=== PATIENT | male | born 1945 | race Two or more races ===

== ENCOUNTER 2020-02-10 06:28 | Inpatient (IN) | payer OTHER ==
[~2020-02-10] VITALS: Wt 6.0 kg
[2020-02-10] MEDS ORDERED: SYNTHROID112 MCG (06:37)
[2020-02-10] MEDS ORDERED: LOTREL 10-40 M1 EACH (06:37)
[2020-02-10] MEDS ORDERED: AMIODARONE HCL100 MG (06:37)
[2020-02-10] MEDS ORDERED: LIPITOR40 M1 (06:37)
[2020-02-10] MEDS ORDERED: CARDURA1 MG (06:38)
[2020-02-10] MEDS ORDERED: ELIQUIS5 MG (06:38)
[2020-02-10] MEDS ORDERED: LASIX40 MG (06:38)
[2020-02-10] MEDS ORDERED: TENORMIN25 MG (06:38)
[2020-02-12] MEDS ORDERED: PERCOCET 5-3251 EACH PO (11:48)
[2020-02-12] MEDS ORDERED: NEURONTIN300 MG PO (11:49)
[2020-02-12] MEDS ORDERED: RECTICARE30 GM TOP (11:49)
[2020-02-12] MEDS ORDERED: LOVENOX40 MG/0.4 SUBCUTANEO (11:55)
[2020-02-13] MEDS ORDERED: TAMSULOSIN HCL0.4 MG PO (10:59)
[2020-02-13] MEDS ORDERED: CODE1TAB37 PO (10:59)
== END 2020-02-13 11:46 | disposition home or self-care (01) | DRG 348 ==
LOC: ER 06:28 → SURH 09:43
PROVIDERS: ADMIT Surgery
PROC: 0DBQ7ZZ Excision of Anus, Via Natural or Artificial Opening (ICD-10-PCS; principal; 2020-02-10)
PROC: 3E0T3BZ Introduction of Anesthetic Agent into Peripheral Nerves and Plexi, Percutaneous Approach (ICD-10-PCS; 2020-02-10)
DX: K60.1 Chronic anal fissure (principal); C21.1 Malignant neoplasm of anal canal; I48.91 Unspecified atrial fibrillation; I25.10 Atherosclerotic heart disease of native coronary artery without angina pectoris; I25.84 Coronary atherosclerosis due to calcified coronary lesion; N18.3 Chronic kidney disease, stage 3 (moderate); I13.10 Hypertensive heart and chronic kidney disease without heart failure, with stage 1 through stage 4 chronic kidney disease, or unspecified chronic kidney disease

== ENCOUNTER 2020-03-09 06:15 | Day surgery (SDC) | payer OTHER ==
[~2020-03-09 06:15] MED LIST: AMIODARONE HCL100 MG; CARDURA1 MG; CODE1TAB37 PO; ELIQUIS5 MG; LASIX40 MG; LIPITOR40 M1; LOTREL 10-40 M1 EACH; LOVENOX40 MG/0.4 SUBCUTANEO; NEURONTIN300 MG PO; PERCOCET 5-3251 EACH PO; RECTICARE30 GM TOP; SYNTHROID112 MCG; SYNTHROID125 MCG; TAMSULOSIN HCL0.4 MG PO; TENORMIN25 MG
[2020-03-09] MEDS ORDERED: CODE1TAB37 PO (10:41)
== END 2020-03-09 12:52 | disposition home or self-care (01) ==
LOC: CIR.AMB 06:15 → ADM 09:45 → CIR.AMB 09:45 → ADM 12:30 → CIR.AMB 12:52
DX: C21.1 Malignant neoplasm of anal canal (principal)
CPT/HCPCS: 36561; C1751

== ENCOUNTER 2020-04-19 04:57 | Inpatient (IN) | payer OTHER ==
[~2020-04-19] VITALS: Ht 185.4 cm; Wt 93.4 kg
[2020-04-29] MEDS ORDERED: ATENOLOL25 MG PO (12:44)
[2020-04-29] MEDS ORDERED: INTEGRA F CAPS1 EACH PO (12:44)
[2020-04-29] MEDS ORDERED: CHOLESTYRAMINE P4 GM PO (12:44)
[2020-04-29] MEDS ORDERED: LEVOTHYROXINE150 MCG PO (12:45)
[2020-04-29] MEDS ORDERED: DOXAZOSIN MESYLA1 MG PO (12:45)
[2020-04-29] MEDS ORDERED: PROTONIX40 MG PO (12:45)
[2020-04-29] MEDS ORDERED: INTESTINEX680 M1 PO (12:45)
[2020-04-29] MEDS ORDERED: AMIODARONE HCL100 MG MD (12:45)
[2020-04-29] MEDS ORDERED: LASIX40 MG PO (12:45)
[2020-04-29] MEDS ORDERED: Neurin-Sl Tablet Sl SL (12:45)
[2020-04-29] MEDS ORDERED: LIPITOR40 M1 PO (12:45)
[2020-04-29] MEDS ORDERED: LOPERAMIDE2 MG PO (12:45)
[2020-04-29] MEDS ORDERED: ELIQUIS5 MG PO (12:45)
== END 2020-04-29 13:37 | disposition home or self-care (01) | DRG 388 ==
LOC: ER 04:57 → SEC-K 15:49 → MEDI 15:49
PROVIDERS: ADMIT Internal Medicine Geriatric Medicine; ATTEND Internal Medicine Geriatric Medicine
PROC: BW21Y0Z Computerized Tomography (CT Scan) of Abdomen and Pelvis using Other Contrast, Unenhanced and Enhanced (ICD-10-PCS; principal; 2020-04-19)
PROC: 8E0ZXY6 Isolation (ICD-10-PCS; 2020-04-19)
PROC: 4A12X4Z Monitoring of Cardiac Electrical Activity, External Approach (ICD-10-PCS; 2020-04-21)
PROC: B54DZZZ Ultrasonography of Bilateral Lower Extremity Veins (ICD-10-PCS; 2020-04-23)
PROC: 02HV33Z Insertion of Infusion Device into Superior Vena Cava, Percutaneous Approach (ICD-10-PCS; 2020-04-26)
PROC: 3E0436Z Introduction of Nutritional Substance into Central Vein, Percutaneous Approach (ICD-10-PCS; 2020-04-26)
DX: K56.600 Partial intestinal obstruction, unspecified as to cause (principal); A41.9 Sepsis, unspecified organism; I48.20 Chronic atrial fibrillation, unspecified; K57.30 Diverticulosis of large intestine without perforation or abscess without bleeding; I10 Essential (primary) hypertension; I87.2 Venous insufficiency (chronic) (peripheral); E03.8 Other specified hypothyroidism; D72.819 Decreased white blood cell count, unspecified; Z79.01 Long term (current) use of anticoagulants; Z03.818 Encounter for observation for suspected exposure to other biological agents ruled out; Z98.61 Coronary angioplasty status

== ENCOUNTER 2020-04-30 01:02 | Emergency (ER) | payer OTHER ==
[~2020-04-30] VITALS: Ht 172.7 cm; Wt 61.7 kg
[~2020-04-30 01:02] MED LIST changes: +AMIODARONE HCL100 MG MD; +ATENOLOL25 MG PO; +CHOLESTYRAMINE P4 GM PO; +DOXAZOSIN MESYLA1 MG PO; +ELIQUIS5 MG PO; +INTEGRA F CAPS1 EACH PO; +INTESTINEX680 M1 PO; +LASIX40 MG PO; +LEVOTHYROXINE150 MCG PO; +LIPITOR40 M1 PO; +LOPERAMIDE2 MG PO; +Neurin-Sl Tablet Sl SL; +PROTONIX40 MG PO
== END 2020-04-30 14:59 | disposition home or self-care (01) ==
LOC: ER 01:02
DX: R60.0 Localized edema (principal); M79.621 Pain in right upper arm; T82.898A Other specified complication of vascular prosthetic devices, implants and grafts, initial encounter; Y84.8 Other medical procedures as the cause of abnormal reaction of the patient, or of later complication, without mention of misadventure at the time of the procedure; Y92.89 Other specified places as the place of occurrence of the external cause

== ENCOUNTER 2021-07-06 06:30 | Day surgery (SDC) | payer OTHER | END 2021-07-06 09:55 | disposition home or self-care (01) | LOC: AMB-ENDOS 06:30 | PROVIDERS: ATTEND Surgery | DX: D12.2 Benign neoplasm of ascending colon (principal); D12.4 Benign neoplasm of descending colon; K62.7 Radiation proctitis; K52.89 Other specified noninfective gastroenteritis and colitis; Z20.822 Contact with and (suspected) exposure to COVID-19 ==

== ENCOUNTER → 2021-10-20 08:00 | Outpatient (CLI) | payer OTHER | END | disposition home or self-care (01) | LOC: LAB 08:00 → ADM 08:15 → EDSTATUS 10-23 08:15 → CIR.AMB 10-23 08:15 | PROVIDERS: ATTEND Surgery | DX: K57.30 Diverticulosis of large intestine without perforation or abscess without bleeding (principal); K62.7 Radiation proctitis; D12.2 Benign neoplasm of ascending colon; D12.4 Benign neoplasm of descending colon; Z20.828 Contact with and (suspected) exposure to other viral communicable diseases; I10 Essential (primary) hypertension ==

== ENCOUNTER → 2022-10-03 09:19 | Outpatient (CLI) | payer OTHER | END | disposition home or self-care (01) | LOC: LAB 09:19 | PROVIDERS: ATTEND Surgery | DX: K57.30 Diverticulosis of large intestine without perforation or abscess without bleeding (principal); K62.7 Radiation proctitis; R59.0 Localized enlarged lymph nodes; C44.520 Squamous cell carcinoma of anal skin; Z01.811 Encounter for preprocedural respiratory examination; K61.0 Anal abscess ==

== ENCOUNTER 2022-10-09 12:15 | Inpatient (IN) | payer OTHER ==
[~2022-10-09] VITALS: Ht 182.9 cm; Wt 101.6 kg
[2022-10-09] MEDS ORDERED: LOTREL 5-20 MG1 CAP PO (13:53)
[2022-10-20] MEDS ORDERED: MORGIDOX100 MG PO (08:30)
[2022-10-20] MEDS ORDERED: ULTRAM50 MG PO (08:33)
== END 2022-10-20 11:14 | disposition home or self-care (01) | DRG 357 ==
LOC: SURH 10-15 07:00 → O/R 10-15 07:02 → SURH 10-15 07:02 → MEDJ 10-15 16:03 → SURH 10-15 16:04
PROVIDERS: ADMIT Surgery; ATTEND Surgery
PROC: 07BC4ZZ Excision of Pelvis Lymphatic, Percutaneous Endoscopic Approach (ICD-10-PCS; principal; 2022-10-16)
PROC: 0TN74ZZ Release Left Ureter, Percutaneous Endoscopic Approach (ICD-10-PCS; 2022-10-16)
PROC: 4A1635H Monitoring of Lymphatic Flow using Indocyanine Green Dye, Percutaneous Approach (ICD-10-PCS; 2022-10-16)
PROC: 0WJP8ZZ Inspection of Gastrointestinal Tract, Via Natural or Artificial Opening Endoscopic Approach (ICD-10-PCS; 2022-10-16)
PROC: 4A12X4Z Monitoring of Cardiac Electrical Activity, External Approach (ICD-10-PCS; 2022-10-16)
PROC: B54CZZZ Ultrasonography of Left Lower Extremity Veins (ICD-10-PCS; 2022-10-19)
DX: K57.30 Diverticulosis of large intestine without perforation or abscess without bleeding (principal); L03.319 Cellulitis of trunk, unspecified; C44.520 Squamous cell carcinoma of anal skin; K62.7 Radiation proctitis; R59.0 Localized enlarged lymph nodes; N13.5 Crossing vessel and stricture of ureter without hydronephrosis; Z20.822 Contact with and (suspected) exposure to COVID-19; I12.9 Hypertensive chronic kidney disease with stage 1 through stage 4 chronic kidney disease, or unspecified chronic kidney disease; N18.30 Chronic kidney disease, stage 3 unspecified; I48.91 Unspecified atrial fibrillation; E03.9 Hypothyroidism, unspecified

== ENCOUNTER 2022-10-31 13:24 | Inpatient (IN) | payer OTHER ==
[~2022-10-31] VITALS: Ht 177.8 cm; Wt 80.7 kg
[~2022-10-31 13:24] MED LIST changes: +LOTREL 5-20 MG1 CAP PO; +MORGIDOX100 MG PO; +ULTRAM50 MG PO
--- NOTE | 2022-10-31 13:35 | NUR ---
SE RECIBE PACIENTE DE AMBULANCIA ALERTA Y ORIENTADO X3 QUIEN REFIERE TUVO UN PROCEDIMIENTO CON LA CAROL YAMILA MARTINEZ EN OCT 15 Y PRESENTA DOLOR PELVICO. SE MONITOREAN LOS SV
--- NOTE | 2022-10-31 15:58 | NUR ---
SE REALIZA ADMINISTRACION DE MEDICAMENTOS A PACIENTE POR ORDEN MEDICA, SE ORIENTA A PACIENTE SOBRE USO Y EFECTOS DE LOS MEDICAMENTOS A SER ADMINISTRADOS. PACIENTE SE LE REALIZA MUESTRAS DE JACK POR ORDEN MEDICA, SE REALIZAN CULTIVOS DE JACK BAJO MEDIDAS ESTERILES, Y SE TKMA TEMPERATURA.
[2022-11-02] MEDS ORDERED: PANTOPRAZOLE SO40 MG (08:12)
[2022-11-02] MEDS ORDERED: OMEGA-3 ACID ETH1 GM (08:12)
[2022-11-27] MEDS ORDERED: PANTOPRAZOLE SO40 MG PO (14:04)
[2022-11-27] MEDS ORDERED: SYNTHROID150 MCG PO (14:04)
[2022-11-27] MEDS ORDERED: FUSION PLUS CA1 EACH PO (14:04)
[2022-11-27] MEDS ORDERED: PRE PROTEIN1 EACH PO (14:04)
[2022-11-27] MEDS ORDERED: TUSSIN MUC100 MG/5 M PO (14:04)
[2022-11-27] MEDS ORDERED: cardura PO (14:04)
[2022-11-27] MEDS ORDERED: LOTREL 5-20 MG1 CAP PO (14:04)
[2022-11-27] MEDS ORDERED: SIMETHICONE125 M1 PO (14:04)
[2022-11-27] MEDS ORDERED: AMIODARONE HCL200 MG PO (14:04)
[2022-11-27] MEDS ORDERED: MECLIZINE HCL25 MG PO (14:04)
[2022-11-27] MEDS ORDERED: ABANEU-SL TABL1 EACH SL (14:04)
[2022-11-27] MEDS ORDERED: BENZONATATE100 MG PO (14:04)
[2022-11-27] MEDS ORDERED: INTESTINEX680 M1 PO (14:04)
[2022-11-27] MEDS ORDERED: ELIQUIS5 MG PO (14:04)
[2022-11-27] MEDS ORDERED: JUVEN PACKET1 EAC1 PO (14:04)
[2022-11-27] MEDS ORDERED: GABAPENTIN300 MG PO (14:04)
[2022-11-27] MEDS ORDERED: LIPITOR40 M1 PO (14:04)
[2022-12-05] MEDS ORDERED: ELIQUIS2.5 MG PO (10:36)
== END 2022-12-18 17:55 | DRG 857 ==
LOC: ER 13:24 → SURH 17:04
PROVIDERS: ADMIT Surgery; ATTEND Surgery
PROC: 4A12X4Z Monitoring of Cardiac Electrical Activity, External Approach (ICD-10-PCS; 2022-11-01)
PROC: B24BYZZ Ultrasonography of Heart with Aorta using Other Contrast (ICD-10-PCS; 2022-11-03)
PROC: BW2110Z Computerized Tomography (CT Scan) of Abdomen and Pelvis using Low Osmolar Contrast, Unenhanced and Enhanced (ICD-10-PCS; 2022-11-04)
PROC: BQ28ZZZ Computerized Tomography (CT Scan) of Left Knee (ICD-10-PCS; 2022-11-04)
PROC: BQ27ZZZ Computerized Tomography (CT Scan) of Right Knee (ICD-10-PCS; 2022-11-04)
PROC: 0Y960ZZ Drainage of Left Inguinal Region, Open Approach (ICD-10-PCS; principal; 2022-11-05)
PROC: 8E0ZXY6 Isolation (ICD-10-PCS; 2022-11-10)
PROC: 30233N1 Transfusion of Nonautologous Red Blood Cells into Peripheral Vein, Percutaneous Approach (ICD-10-PCS; 2022-11-13)
PROC: 2W17X6Z Compression of Left Inguinal Region using Pressure Dressing (ICD-10-PCS; 2022-11-18)
PROC: 0W9B3ZZ Drainage of Left Pleural Cavity, Percutaneous Approach (ICD-10-PCS; 2022-11-22)
PROC: 0W993ZZ Drainage of Right Pleural Cavity, Percutaneous Approach (ICD-10-PCS; 2022-11-22)
PROC: B54MZZZ Ultrasonography of Right Upper Extremity Veins (ICD-10-PCS; 2022-11-28)
PROC: 02HV33Z Insertion of Infusion Device into Superior Vena Cava, Percutaneous Approach (ICD-10-PCS; 2022-11-30)
PROC: 30243N1 Transfusion of Nonautologous Red Blood Cells into Central Vein, Percutaneous Approach (ICD-10-PCS; 2022-12-01)
DX: T81.49XA Infection following a procedure, other surgical site, initial encounter (principal); J90 Pleural effusion, not elsewhere classified; L03.314 Cellulitis of groin; L76.34 Postprocedural seroma of skin and subcutaneous tissue following other procedure; L02.214 Cutaneous abscess of groin; K52.1 Toxic gastroenteritis and colitis; T80.1XXA Vascular complications following infusion, transfusion and therapeutic injection, initial encounter; Z16.12 Extended spectrum beta lactamase (ESBL) resistance; N17.9 Acute kidney failure, unspecified; B96.20 Unspecified Escherichia coli [E. coli] as the cause of diseases classified elsewhere; I80.8 Phlebitis and thrombophlebitis of other sites; D53.9 Nutritional anemia, unspecified; D50.0 Iron deficiency anemia secondary to blood loss (chronic); D63.1 Anemia in chronic kidney disease; M54.59 Other low back pain; R53.81 Other malaise; F32.A Depression, unspecified; C44.520 Squamous cell carcinoma of anal skin; I48.0 Paroxysmal atrial fibrillation; I25.10 Atherosclerotic heart disease of native coronary artery without angina pectoris; I13.10 Hypertensive heart and chronic kidney disease without heart failure, with stage 1 through stage 4 chronic kidney disease, or unspecified chronic kidney disease; N18.30 Chronic kidney disease, stage 3 unspecified; Z79.01 Long term (current) use of anticoagulants; E03.9 Hypothyroidism, unspecified; M17.0 Bilateral primary osteoarthritis of knee

== ENCOUNTER 2023-06-29 21:03 | Emergency (ER) | payer OTHER ==
[~2023-06-29] VITALS: Ht 180.3 cm; Wt 83.9 kg
[~2023-06-29 21:03] MED LIST changes: +ABANEU-SL TABL1 EACH SL; +AMIODARONE HCL200 MG PO; +BENZONATATE100 MG PO; +ELIQUIS2.5 MG PO; +FUSION PLUS CA1 EACH PO; +GABAPENTIN300 MG PO; +JUVEN PACKET1 EAC1 PO; +MECLIZINE HCL25 MG PO; +OMEGA-3 ACID ETH1 GM; +PANTOPRAZOLE SO40 MG; +PANTOPRAZOLE SO40 MG PO; +PRE PROTEIN1 EACH PO; +SIMETHICONE125 M1 PO; +SYNTHROID150 MCG PO; +TUSSIN MUC100 MG/5 M PO; +cardura PO
== END 2023-06-30 05:16 | disposition home or self-care (01) ==
LOC: ER 21:03
DX: K62.5 Hemorrhage of anus and rectum (principal); Z88.2 Allergy status to sulfonamides; I48.91 Unspecified atrial fibrillation; I10 Essential (primary) hypertension; E03.9 Hypothyroidism, unspecified; Z85.038 Personal history of other malignant neoplasm of large intestine
CPT/HCPCS: 36415; 74177; 99284; Q9965

== ENCOUNTER 2023-08-05 01:15 | Emergency (ER) | payer OTHER ==
[~2023-08-05] VITALS: Ht 180.3 cm; Wt 81.6 kg
== END 2023-08-05 12:50 | disposition home or self-care (01) ==
LOC: ER 01:15
PROVIDERS: General Practice
DX: K62.5 Hemorrhage of anus and rectum (principal)
CPT/HCPCS: 36415; 96365; 99282; J7030